=== PATIENT | female | born 1985 | race Hispanic/Latino ===

== ENCOUNTER 2023-02-13 10:39 | Outpatient (CLI) | payer BC | END 2023-02-13 10:40 | disposition home or self-care (01) | LOC: SCSRAD 10:39 | PROVIDERS: ATTEND Nurse Practitioner Family | DX: S99.922A Unspecified injury of left foot, initial encounter (principal) ==

== ENCOUNTER 2023-12-21 11:07 | Outpatient (CLI) | payer BC | END 2023-12-21 11:08 | disposition home or self-care (01) | LOC: SCSRAD 11:07 | PROVIDERS: ATTEND Physician Assistant | DX: R07.1 Chest pain on breathing (principal) | CPT/HCPCS: 71046 ==